=== PATIENT | male | born 1980 | race African-American/Black ===

== ENCOUNTER 2016-02-14 11:14 | Emergency (ER) | payer OTHER ==
[~2016-02-14] VITALS: Ht 182.9 cm; Wt 101.6 kg
--- NOTE | ~2016-02-14 | EKG ---
[place] [address] [facility] [address] ELECTROCARDIOGRAM REPORT Name: PEACE KEN Room [facility]: [facility] [id number] Admission: 02/14/16 Attend Phys: Discharge: 02/14/16 Date of : 78 Report #: [id number] THIS REPORT FOR: //name// [facility] ED Test Date: 2016-02-14 Test Time: 11:53:10 Pat Name: PEACE KEN Department: Room: Gender: Arch Support Maker: GABINO : 1980 Requested By: Fernie Blandon Order Number: [id number] MD: Anil Nix Measurements Intervals Coleman Rate: 98 P: 75 OK: 160 QRS: -2 QRSD: 96 T: -4 QT: 337 QTc: 431 Interpretive Statements Sinus rhythm ST elev, probable normal early repol pattern No previous ECG available for comparison Electronically Signed On 02-14-2016 14:38:46 TABLEAU ANALYST by Anil Nix [email or web address] <ELECTRONICALLY SIGNED> By: Anil Nix MD, [facility] 02/14/16 1438 1153 1153 Anil Nix MD, FAC /EPI
[~2016-02-14 11:14] MED LIST: FLEXERIL PO; IBUPROFEN 800800 M1 PO; NORCO 5-325 TA1 EACH PO
[2016-02-14 12:06] LABS: ABSOLUTE NEUTROPHILS 4.5 thou/uL (1.4-8.2); BASOPHILS 0.6 % (0.0-2.0); HEMATOCRIT 44.2 % (42.0-52.0); HEMOGLOBIN 14.9 gm/dL (14.0-18.0); LYMPHOCYTES 25.1 % (24.0-44.0); MCH 30.8 pg (26.0-34.0); MCHC 33.7 % (28.0-37.0); MCV 91.5 fL (80.0-100.0); MONOCYTES 6.9 % (1.0-8.0); PLATELET COUNT 206 thou/uL (150-400); POLYS 66.4 % (36.0-66.0); RBC 4.83 mil/uL (4.50-6.00); RDW 13.7 % (10.5-14.5); WBC 6.8 thou/uL (4.0-11.0)
[2016-02-14 12:08] LABS: MANUAL DIFF NO
[2016-02-14 12:13] LABS: CALCIUM 9.3 mg/dL (8.5-10.1); CREATININE 1.3 mg/dL (0.6-1.3); POTASSIUM 3.7 mmol/L (3.5-5.1)
[2016-02-14 12:37] LABS: URINE BILIRUBIN NEGATIVE (Negative); URINE BLOOD NEGATIVE (Negative); URINE COLOR YELLOW; URINE GLUCOSE-RANDOM* NEGATIVE (Negative); URINE KETONES NEGATIVE (Negative); URINE NITRITE NEGATIVE (Negative); URINE PROTEIN (DIPSTICK) NEGATIVE (Negative); URINE SPECIFIC GRAVITY >= 1.030 (1.003-1.035); URINE UROBILINOGEN 0.2 E.U./dl (0.2-1.0)
[2016-02-14 12:46] LABS: AMP/METHAMP Negative (Negative); BARBITURATES Negative (Negative); BENZODIAZEPINES Negative (Negative); COCAINE Negative (Negative); METHADONE Negative (Negative); OPIATES Negative (Negative); PCP POSITIVE (Negative); THC POSITIVE (Negative)
[2016-02-14 13:21] VITALS: BP 134/69
== END 2016-02-14 13:22 | disposition home or self-care (01) ==
LOC: ER 11:14
PROVIDERS: Nurse Practitioner
DX: F19.90 Other psychoactive substance use, unspecified, uncomplicated (principal); F10.99 Alcohol use, unspecified with unspecified alcohol-induced disorder